=== PATIENT | female | born 1950 | race Caucasian/White ===

== ENCOUNTER 2024-09-08 10:05 | Emergency (ER) | payer MEDICARE, OTHER, SELFPAY ==
[2024-09-08 10:08] VITALS: BP 151/82
--- NOTE | 2024-09-08 11:54 | ED.GENMED ---
History of Present Illness
General
Chief Complaint: Musculo-Skeletal Complaint
Source: patient
Exam Limitations: none
Time Seen by Provider: 09/08/24 11:13
Nursing documentation reviewed up to this point in time: agreed with
History of Present Illness
History of Present Illness:
73-year-old female presents to the ER for evaluation of right knee pain. She was walking last night during a box and her right knee gave out. She is not sure if she heard her fall a pop. She has been able to walk with a cane complains of only
very minimal discomfort. She denies any actual trauma.
Review of Systems
Review of Systems
Allergies reviewed?: Yes
All Other Systems: ROS reviewed and negative except as documented in HPI and ROS
Constitutional: Reports no symptoms
Musculoskeletal: Reports other (right knee pain/injury )
Skin: Reports no symptoms
Neurological: Reports no symptoms
Psychiatric: Reports no symptoms
Phy Exam
General Physical Exam
General Presentation: no apparent distress
General age: appears stated age
General Skin: warm and dry
General Habitus: normal
General Mental: alert
General Hydration: appears well hydrated
Neurological Exam
Neurological Exam: alert and oriented x3
Musculoskeletal Exam
Musculoskeletal Exam: other (rle with strong pulses no obvious swelling full ROM no laxity )
Skin Exam
Skin Exam: normal color and warm/dry
Psychiatric Exam
Psychiatric Exam: normal mood/affect
Course
Orders/Labs/Results
Orders:
Orders
09/08/24 10:14
CR Knee- Right 4 Or More View* Urgent
Comment:
Reason For Exam: pain, injury
09/08/24 12:07
Adithya Wrap Right-Treatment ONCE
Comment: knee
Vital Signs
Initial and Last Documented VS:
Initial Vital Signs
Temp Pulse Resp BP Pulse Ox
98.4 F 86 16 151/82 97
09/08/24 10:08 09/08/24 10:08 09/08/24 10:08 09/08/24 10:08 09/08/24 10:08
Last Documented Vital Signs
Temp Pulse Resp BP Pulse Ox
98.4 F 86 16 151/82 97
09/08/24 10:08 09/08/24 10:08 09/08/24 10:08 09/08/24 10:08 09/08/24 10:08
MDM/Problems Addressed
Differential Diagnosis Includes:
Not limited to sprain strain meniscus injury
MDM/Problems Addressed:
Symptoms are consistent with mild sprain strain of knee, no obvious effusion; x-rays are negative patient bearing weight well with assistance of cane will d/c w/ ADITHYA wrap RICE and outpt fu by pcp (patient has an appointment September 13) we will give
Ortho if needed.
*Radiology
Radiology exam reviewed: radiology read reviewed
*Pulse Oximetry
Patient hypoxic: no
*Critical Care Note
Total Time (30-74mins, 75-104mins- exclusive of procedures): Not Applicable
ED Attending Note
-
Portions of this chart may have been created with voice recognition software.� Occasional wrong word or��sound alike� substitutions may have occurred due to the inherent limitations of voice recognition software.
Discharge Plan
Departure
Patient Disposition: Home (Routine Discharge)
Date of Disposition: 09/08/24
Time of Disposition: 12:06
Patient with high blood pressure during this ER visit?: Yes
Condition: Fair
Covid-19: Not Applicable
Discharge Problem:
Knee sprain
Instructions: Knee Sprain (DC)
Referrals:
Ryley Subramanian MD [Active, Orthopedics]
Miki Acevedo MD [Family Provider, Family Practice]
Activity Restrictions/Additional Instructions:
As discussed wear Adithya wrap for support during the day however remove at night while sleeping. Keep elevated as much as possible .
you may apply ice for the next 24 hours 20 minutes at a time several times a day.
You may take Tylenol or ibuprofen as needed
. Follow-up with family doctor as scheduled and orthopedics if needed.
Return if any worsening of symptoms.
Interventions
Interventions:
*Risk Screen - Suicide Last Done: 09/08/24 11:51
*General Assessment Last Done: 09/08/24 11:51
*Neglect/Abuse Screening Last Done: 09/08/24 11:51
*ED COVID-19 Vaccine History Last Done: 09/08/24 11:51
ED-Musculoskeletal Assessment Last Done: 09/08/24 11:51
Discharge Date and Time
Print Language: CENTRAL AFRICAN
== END 2024-09-08 12:27 | disposition home or self-care (01) ==
LOC: EMR 10:05
PROVIDERS: EMERGENCY PHYSICIAN Emergency Medicine; FAMILY PHYSICIAN Family Medicine
DX: S83.91XA Sprain of unspecified site of right knee, initial encounter (principal); X50.1XXA Overexertion from prolonged static or awkward postures, initial encounter
CPT/HCPCS: 99283; 73564